=== PATIENT | male | born 1995 | race Caucasian/White ===

== ENCOUNTER 2017-02-02 14:38 | Emergency (ER) | payer OTHER ==
[2017-02-02 14:55] VITALS: BP 117/68
--- NOTE | 2017-02-02 15:12 | ER Document Report ---
HPI - HPI Patient complains to provider of: sore throat Context: 21 yo male c/o sore throat x 3 days, sinus drainage x 4 days. + fever, + nausea Associated Symptoms: Body/muscle aches, Fever, Headache, Sinus pain/drainage Exacerbated by: Food Relieved by: Denies Similar symptoms previously: No Recently seen / treated by doctor: No - ROS Systems Reviewed and Negative: Yes All other systems reviewed and negative Past Medical History - General Information source: Patient - Social History Smoking Status: Never Smoker Frequency of alcohol use: None Drug Abuse: None Occupation: unemployed Lives with: Family Family History: Reviewed & Not Pertinent Vertical Provider Document - CONSTITUTIONAL Agree With Documented VS: Yes Exam Limitations: No Limitations General Appearance: WD/WN, No Apparent Distress - HEENT HEENT: Atraumatic, PERRLA, Pharyngeal Tenderness, Pharyngeal Erythema - + tonsillar hypertrophy. no airway compromise. negative: Pharyngeal Exudate - NECK Neck: Normal Inspection, Supple - RESPIRATORY Respiratory: Breath Sounds Normal, No Respiratory Distress O2 Sat by Pulse Oximetry: 98 - CARDIOVASCULAR Cardiovascular: Regular Rate, Regular Rhythm - GI/ABDOMEN Gastrointestinal: Abdomen Soft, Abdomen Non-Tender, Normal Bowel Sounds - MUSCULOSKELETAL/EXTREMETIES Musculoskeletal/Extremeties: HEATHER WILSON - NEURO Level of Consciousness: Awake, Alert, Appropriate Course - Re-evaluation Re-evalutation: 02/02/17 15:10 H&P c/w pharyngitis. no s/s ludwigs, airway compromise. will treat for strep based on physical exam. pt is afebrile, nontoxic, no difficulty swallowing or talking. agreeable with plan and stable for discharge - Vital Signs Vital signs: Temp Pulse Resp BP Pulse Ox 98.0 F 66 16 117/68 98 02/02/17 14:53 02/02/17 14:53 02/02/17 14:53 02/02/17 14:53 02/02/17 14:53 Discharge - Discharge Clinical Impression: Pharyngitis Qualifiers: Pharyngitis/tonsillitis etiology: unspecified etiology Qualified Code(s): J02.9 - Acute pharyngitis, unspecified Condition: Stable Disposition: HOME, SELF-CARE Instructions: Penicillin V K ([facility]), Sore Throat ([facility]), Strep Throat ([facility]), Steroid Medication Additional Instructions: I am treating you for strep throat Please take all your medication as prescribed You may use OTC lozenges and salt water gargles for comfort Change you toothbrush in 2 days to avoid re-infection Return to ER for any increased pain, trouble swallowing or worsening of status Prescriptions: Penicillin V Potassium [Penicillin Vk 500 mg Tablet] 500 mg PO BID #20 tablet Prednisone 20 mg PO BID #16 tablet
== END 2017-02-02 15:21 | disposition home or self-care (01) ==
LOC: ER 14:38
DX: J02.9 Acute pharyngitis, unspecified (principal); R50.9 Fever, unspecified; R11.0 Nausea; M79.1 Myalgia; R51 Headache
CPT/HCPCS: 99282